=== PATIENT | male | born 1965 | race Caucasian/White ===

== ENCOUNTER 2024-03-08 12:17 | Emergency (ER) | payer SELFPAY ==
[~2024-03-08] VITALS: Ht 193 cm; Wt 86.0 kg
[2024-03-08 12:19] VITALS: BP 130/91; PULSE 83; RESP 16; TEMP 98; O2SAT 99
[2024-03-08] MEDS: IBUPROFEN 800MG TABLET PO ONE (13:14)
[2024-03-08] MEDS: ACETAMINOPHEN 325MG TABLET PO ONE (13:14)
[2024-03-08] MEDS ORDERED: IBUP-2030 MT (14:21)
[2024-03-08] MEDS ORDERED: CEPH500T MT (14:21)
[2024-03-08] MEDS ORDERED: TOPUD MT (14:21)
[2024-03-08 14:27] LABS: CLARITY URINE CLEAR (CLEAR); COLOR URINE DARK YELLOW (YELLOW); GLUCOSE URINE NEGATIVE (NEGATIVE); KETONES URINE TRACE (NEGATIVE); LEUKOCYTE ESTERASE URINE NEGATIVE (NEGATIVE); NITRITE URINE NEGATIVE (NEGATIVE); OCCULT BLOOD URINE NEGATIVE (NEGATIVE); PROTEIN URINE TRACE (NEGATIVE); SPECIFIC GRAVITY URINE 1.026 (1.005-1.030); UROBILINOGEN URINE 0.2 E.U./dL (0.2-1.0)
[2024-03-08 14:48] LABS: MUCUS URINE 1+ /lpf (NONE/TRACE); SQUAMOUS EPITHELIAL CELL URINE NONE SEEN /lpf (RARE/1+)
[2024-03-08 14:49] LABS: BACTERIA URINE 1+; RBC URINE 0-2 /hpf (0-2); WBC URINE 0-2 /hpf (0-2)
== END 2024-03-08 14:43 | disposition home or self-care (01) ==
LOC: ER 12:46
DX: S50.311A Abrasion of right elbow, initial encounter (principal); L03.115 Cellulitis of right lower limb; J44.9 Chronic obstructive pulmonary disease, unspecified; M25.561 Pain in right knee; W18.39XA Other fall on same level, initial encounter; Y93.89 Activity, other specified; Y92.89 Other specified places as the place of occurrence of the external cause; Y99.8 Other external cause status
CPT/HCPCS: 72100; 73562; 81003; 99284